=== PATIENT | male | born 1980 | race Caucasian/White ===

== ENCOUNTER 2025-01-01 08:21 | Outpatient (AMB) | payer OTHER, SELFPAY ==
--- NOTE | 2025-01-01 08:27 | A.OFFVIS_ITS ---
Vital Signs 01/01/25 08:30 Height 5 ft 6 in Weight 145 lb BMI 23.4 Intake Visit Reasons: [employer]-Chronic RT low back pain w/ RT sided sciatica Intake Note: Jay is a 43 year old male who presents today as a new patient for his chronic right lower back pain w/ right sided sciatica. Patient was referred by [facility] 09/03/24. At today's visit he states that since 2007 he has had right lower back pain that radiates into the right leg. He states that when the pain does flair up it radiates from the lower back into the right side of his pelvis down to the foot. Patient reports that he did have a MRI with in the last two years and he noted that he has had injections in the past. He reports that he does try at home exercises, CBD cream, ice/heat. Allergies No Known Allergies Allergy (Verified 01/01/25 08:31) Medication List - Last Reconciled 01/01/25 by Iram Daley MD fluticasone propionate 50 mcg/actuation 1 spray intranasal DAILY lidocaine 5% 1 patch topical DAILY PRN naproxen 500 mg PO BID PRN pantoprazole 40 mg PO DAILY HPI Comments Details: MRI lumbar 2017 at [facility]. Had more recent MRI which is not available to me today. Last injections to lumbar 5-[address] Snow, most likely epidural. History of lumbar surgery Dr. Jeff. Has tried gabapentin and lyrica in the past and didn't like the side effects. He says that he didn't know he was coming here for his back pain. 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 Forwarded referral for EMG coming from [facility] ortho to scheduling, this is for EMG upper extremities. Patient will continue to follow with Dr. Snow for his lower back pain. Patient requested EMG of lower extremities because of his chronic back and ?nerve ?issues. Ordered EMG bilateral lower extremity, but separate appointment from EMG upper extremity. Assessment and plan discussed with patient, and patient was agreeable. All questions were answered thoroughly. Iram Daley MD, GENO Board Certified, [place] Board of Physical Medicine and Rehabilitation (ABPMR) Board Certified, [place] Board of Electrodiagnostic Medicine (ABEM) Orders: Orders NE nerve conduction velocity Today R20.0 - Anesthesia of skin NE electromyogram (EMG) Today R20.0 - Anesthesia of skin Coding Level of Care Code New Pt Level 3 (59584) Diagnoses Bilateral leg numbness R20.0
[2025-01-01 08:30] VITALS: BMI 23.4
--- OUTSIDE RECORDS SUMMARY | 2025-01-01 08:45 | XMS_ITS | Clinical Summary ---
Author Organization Patient Business Ser [facility] [place] Address [address] [place] [address] Care Team Providers Care Pension Examiner Name Role Phone Jonathan Kahn MD Primary Care Provider Un available Allergies Active Allergy Reactions Criticality Noted Date Comments Pollen Extracts 06/26/2021 Stuffy nose , sneezing Seasonal Allergies Medications fluticasone propionate (FLONASE) 50 mcg/actuation nasal spray USE 1 SPRAY INTO EACH NOSTRIL EVERY DAY 48 mL 1 4 Active lisdexamfetami ne (VYVANSE) 40 mg capsule Take 1 capsule (40 mg total) by mouth 1 (one) time each day. 5 Active ALPRAZolam (XANAX) 0.5 mg tablet Take 1 tablet (0.5 mg total) by mouth 1 (one) time each day if needed. Max Daily Amount: 0.5 mg 5 Active clindamycin phosphate 1 % gel, once daily 5 Active pantoprazole (PROTONIX) 40 mg EC tablet TAKE 1 TABLET BY MOUTH EVERY DAY 90 tablet 1 5 Active meloxicam (MOBIC) 15 mg tablet TAKE 1 TABLET (15 MG TOTAL) BY MOUTH ONE TIME EACH DAY. 30 tablet 5 Active meloxicam (MOBIC) 15 mg tablet Take 1 tablet (15 mg total) by mouth 1 (one) time each day. 30 each 1 5 12/16/19 25 Discontinued Active Problems Problem Noted Date Diagnosed Date History of COVID-19 06/06/2021 Overview (11/01/2023): February 2020 Fatigue 12/08/2020 Dizziness 12/08/2020 ADD (attention deficit disorder) 05/15/2019 Insomnia 08/07/2018 Vertigo 08/10/2016 Chronic right-sided low back pain with right-bryan ed sciatica 08/02/2016 Decreased reflex 08/02/2016 Lumbar radiculopathy 08/02/2016 Lumbosacral ligament sprain 07/09/2016 Sprain of sacroiliac ligament 07/09/2016 Sprain of thoracic region 07/09/2016 Right shoulder pain 08/15/2015 Pulmonary nodule 08/10/2015 Overview (11/01/2023): Nodules on CT 07/2021; repeat 1 year (former smoker) Anxiety 07/06/2015 Kidney stones 07/06/2015 Encounters Date Type Department Care Team Description 12/24/2024 3:30 PM EDT Office Visit Pulmonology - [address] [phone] Annette Fernandez MD GARVIN (dyspnea on exertion) (Primary Dx); Lung nodules 12/08/2024 1:45 PM EDT Ancillary Procedure Pulmonology - [address] [phone] GARVIN (dyspnea on exertion) 10/16/2024 Telephone [facility] [address] [place] [address] Jonathan Kahn MD from Last 3 Months Immunizations Immunization Administration Dates Next Due Td Tetanus diptheria (Tdvax) 7yo and older 10/10 Surgical History Surgery Date Site/Laterality Comments OTHER SURGICAL HISTORY PROCEDURE: HISTORY OTHER; COMMENT: discectomy L4-5 OTHER SURGICAL HISTORY PROCEDURE: HISTORY OTHER; COMMENT: spinal fusion OTHER SURGICAL HISTORY PROCEDURE: HISTORY OTHER; COMMENT: stimulator inserted OTHER SURGICAL HISTORY PROCEDURE: HISTORY OTHER; COMMENT: stimulator removed. TONSILLECTOMY PROCEDURE: HISTORICAL TONSILLECTOMY Medical History Medical History Date Comments Pulmonary nodule 08/10/2015 DX:Pulmonary no dule; COMMENT: Seen on CT 2014 was to have 1 yr repeat / result not seen ADD (attention deficit disorder) 05/15/2019 DX:ADD (attention deficit disorder) History of COVID-19 06/06/2021 DX:History o f COVID-19; COMMENT: February 2020 GERD (gastroesophageal reflux disease) Kidney stones Family History Medical History Relation Name Comments Drug abuse Brother Ziyad Hyperlipidemia Father Hypertension Father Diabetes Maternal Grandmother Relation Name Status Comments Brother Ziyad Alive twin Father Alive Maternal Grandmother Mother Alive Social History Tobacco Use Types Packs/Day Years Used Date Smoking Tobacco: Former Cigarettes 1 1 0 02/26/2000 - 02/25/2001 Smokeless Tobacco: Never Tobacco Cessation:Counseling Given: Not Answered Alcohol Use Standard Drinks/Week Comments Yes 0 (1 standard drink = 0.6 oz pur e alcohol) Housing Instability Answer Date Recorde d Are you worried that in the next 2 months you may not have stable housing? No 03/31/2024 Food Access & Nutrition Answer Date Rec orded Do you have access to a vari ety of food including fruits and vegetables? Yes 03/31/2024 Access to Healthcare Answer Date Record ed Within the last 3 months, ho w many times did you visit the emergency department for your medical care? 0 03/31/2024 Health Literacy Answer Date Recorded How often do you need to hav e someone help you when you read instructions, pamphlets, or other written material from your doctor or pharmacy? Rarely 03/31/2024 Caregiver: How often do you need to have someone help you when you read instructions, pamphlets, or other written material from your doctor or pharmacy? Not on file 03/31/2024 Financial Risk Answer Date Recorded How hard is it for you to pa y for the very basics like food, housing, medical care, and air conditioning / heating? Somewhat hard 03/31/2024 Transportation Answer Date Recorded Has the lack of transportati on kept you from meetings, work, or from getting things needed for daily living? No Has the lack of transportati on kept you from medical appointments or from getting medications? No 03/31/2024 Social Isolation Answer Date Recorded How often do you feel lonely or isolated from th ose around you? Rarely 03/31/2024 Food Risk Answer Date Recorded Within the past 12 months we worried whether our food would run out before we got money to buy more. Never true 03/31/2024 Within the past 12 months th e food we bought just didn't last and we didn't have money to get more. Never true 03/31/2024 Dependent Care Answer Date Recorded Do you need help finding or paying for care for your loved ones. For example, child psychiatrist or elderly care for an older adult? No 03/31/2024 Education Answer Date Recorded Do you think completing more education or training, like finishing a GED, going to college, or learning a trade, would be helpful for you? No 03/31/2024 Employment and Income Answer Date Recor ded During the last four weeks, have you been actively looking for work? No 03/31/2024 Living Situation Answer Date Recorded What is your living situation? Unrecognized valu e 03/31/2024 Interpersonal Safety Answer Date Record ed Physical Abuse Unrecognized value 04/22/2024 Verbal Abuse Unrecognized value 04/22/2024 Sex and Gender Information Value Date Recorded Sex Assigned at Male 04/22/2024 12:12 PM EST Legal Sex Male 4:45 PM EST Gender Identity Male 04/22/2024 12:12 PM EST Sexual Orientation Straight 04/22/2024 12 :12 PM EST Obstetrics History Last Filed Vital Signs Vital Sign Reading Time Taken Comments Blood Pressure 123/66 12/24/2024 3:15 PM EDT Pulse 85 12/24/2024 3:15 PM EDT Temperature 36.2 C (97.1 F) 12/24/2024 3:15 PM EDT Respiratory Rate 16 12/24/2024 3:15 PM EDT Oxygen Saturation 99% 12/24/2024 3:15 PM EDT Inhaled Oxygen Concentration - - Weight 63.2 kg (139 lb 6.4 oz) 12/24/2024 3:15 P M EDT Height 167.6 cm (5' 6 ) 12/24/2024 3:15 PM EDT Body Mass Index 22.5 12/24/2024 3:15 PM EDT Plan of Treatment Health Maintenance Due Date Last Done Comments Hepatitis B Vaccines (1 of 3 - 19+ 3-dose series) 2001 HPV Vaccines (1 - 3-dose SCD M series) 2009 COVID-19 Vaccine ( - 2023-2 5 season) 2024 Influenza Vaccine (#1) 2024 Social Influencers of Health Screening 03/31/2025 03/31/2024 Cholesterol Screening (Lipid Panel) 05/07/2028 05/08/2023 DTaP,Tdap,and Td Vaccines (3 - Td or Tdap) 01/11/2033 01/11/2023, 10/10/2018 RSV Immunization Adult Patients (1 - 1-dose 75+ series) 2057 Hepatitis C Screening Completed 04/03/2022 HIV Screening Completed 05/08/2023 Depression Screening Completed 03/31/2024, 08/03/2023 HIB Vaccines Aged Out No longer eligi ble based on patient's age to complete this topic Hepatitis A Vaccines Aged Out No long er eligible based on patient's age to complete this topic IPV Vaccines Aged Out No longer eligi ble based on patient's age to complete this topic MMR Vaccines Aged Out No longer eligi ble based on patient's age to complete this topic Meningococcal ACWY Vaccine Aged Out N o longer eligible based on patient's age to complete this topic Meningococcal B Vaccine Aged Out No l onger eligible based on patient's age to complete this topic Pneumococcal Vaccine: Pediatrics (0 to 5 Years) and At-Risk Patients (6 to 49 Years) Aged Out No longer eligible b ased on patient's age to complete this topic RSV Immunization Patients Under 20 months Aged Out No longer eligible b ased on patient's age to complete this topic Varicella Vaccines Aged Out No longer eligible based on patient's age to complete this topic Procedures Procedure Name Priority Date/Time Associated Diagnosis Comments PULMONARY FUNCTION TESTING Routine 12/08/2024 1:49 PM EDT GARVIN (dyspnea on exertion) DEPRESSION SCREENING Routine 08/03/2023 HIV SCREENING Routine 05/08/2023 LIPID PANEL Routine 05/08/2023 HEPATITIS C SCREENING Routine 04/03/2022 from Last 3 Months or Most Recently Relevant to Health Maintenance Results * Pulmonary function testing: Carbon Monoxide Diffusing Capacity, Nitrogen Wash Out, Spirometry with Bronchodilator, MIP/MEP, Vital Capacity Test (12/08/2024 1:49 PM EDT) Lorenes Thony Bradford MD - 12/08/2024 1:49 PM EDT Pulmonary function test interpretation. Spirometry done today reveals FEV1 of 4.06 which is 110% of the predicted value, FVC is 4.73 which is 102% of the predicted value, FEV1 to FVC ratio is 79% of the predicted value, there is no bronchodilator response. Flow volume is consistent with normal pattern. Static lung volumes including total lung capacity is within normal limits. Diffusion lung capacity is elevated. This study is consistent with normal pulmonary mechanics, however if diagnosis of asthma is in question recommend methacholine challenge test. Clinical correlation however is advised. Result [facility] Annette Fernandez MD PFT ORDERABLES Final Result * Depression Screening (08/03/2023) [facility] Depression Screening Abstracted Result [facility] Pao [facility]NA[facility] MAINTENANCE Final Result * HIV Screening (05/08/2023) [facility] HIV Screening Abstracted Result [facility] [employer] Final Result * Lipid panel (05/08/2023) [facility] LDL/HDL Ratio 3 Triglycerides 74 mg/dL Cholesterol 218 mg/dL HDL 72 mg/dL LDL Cholesterol 132 mg/dL Blood Venous blood specimen / Unknown Result [facility] Claudia Cedeno MD LAB BLOOD ORDERABLES Katelin l Result * Hepatitis C Screening (04/03/2022) [facility] Hepatitis C Screening Abstracted Result [facility] Claudia Cedeno MD HEALTH MAINTENANCE Final Result from Last 3 Months or Most Recently Relevant to Health Maintenance Insurance [facility] [address] [place] [address] Care Teams Pension Examiner Relationship Specialty Start Date End Date Jonathan Kahn MD PCP - General Internal Medicine 04/12/20
--- OUTSIDE RECORDS SUMMARY | 2025-01-01 08:45 | XMS_ITS ---
Author Name [facility] Organization Unknown History of Medication Use Medication Directions Dispensed Refills Start Date End Date Stat amoxicillin 875 mg-potassium clavulanate 125 mg tablet TAKE 1 TABLET BY MOUTH EVERY 12 HOURS FOR 7 DAYS 4 active Anoro Ellipta 62.5 mcg-25 mcg/actuation powder for inhalation TAKE 1 PUFF BY MOUTH EVERY DAY 4 active Arnuity Ellipta 200 mcg/actuation powder for inhalation INHALE 1 PUFF INTO LUNGS DAILY 4 completed cyclobenzaprine 10 mg tablet TAKE 1 TABLET BY MOUTH EVERY DAY AT BEDTIME NEEDED FOR PAIN 4 active ondansetron HCl 4 mg tablet TAKE 1-2 TABLETS BY MOUTH EVERY 8 HOURS NEEDED FOR NAUSEA FOR UP TO 30 DAYS. 4 active oxycodone-acetaminoph en 5 mg-325 mg tablet PLEASE SEE ATTACHED FOR DETAILED DIRECTIONS 4 completed sertraline 25 mg tablet TAKE 1 TABLET BY MOUTH EVERY DAY 4 completed fluticasone propionate 50 mcg/actuation nasal spray,suspension SPRAY 1 SPRAY INTO EACH NOSTRIL EVERY DAY active pantoprazole 40 mg tablet,delayed release TAKE 1 TABLET BY MOUTH EVERY DAY active pregabalin 50 mg capsule TAKE 1 CAPSULE BY MOUTH TWICE A DAY active pregabalin 75 mg capsule TAKE 1 CAPSULE BY MOUTH TWICE A DAY active sertraline 50 mg tablet TAKE 1 TABLET BY MOUTH EVERY DAY active Wixela Inhub 250 mcg-50 mcg/dose powder for inhalation TAKE 1 PUFF BY MOUTH TWICE A DAY active Problems Problem Status Onset Date Problem Type Date of Resoluti on Source Pain of right shoulder region active 2023-10-08 ProblemAct ENS_AONECT Encounters Encounter Type Encounter Reason Primary Diagnosis Location Date Ambulatory [facility] 10/09/2023 Ambulatory [facility] 10/08/2023 Ambulatory [facility] 09/03/2023 Ambulatory [facility] 09/02/2023 Ambulatory [facility] 09/02/2023 Ambulatory [facility] 09/02/2023 Ambulatory [facility] 09/02/2023 Ambulatory [facility] 08/09/2023 Care Team Organization Name Specialty Phone Email Start Date End Da te [facility] Jonathan Kahn Primary Care 01/02/2022 10/14/2023
== END 2025-01-01 09:06 | disposition home or self-care (01) ==
LOC: HO.HOS 08:22
PROVIDERS: Visit Provider Physical Medicine & Rehabilitation
DX: R20.0 Anesthesia of skin (principal)
CPT/HCPCS: 99203

== ENCOUNTER 2025-02-05 11:34 | Outpatient (REF) | payer OTHER, SELFPAY ==
--- OUTSIDE RECORDS SUMMARY | 2025-02-05 16:50 | XMS_ITS | Clinical Summary ---
Author Organization Patient Business Ser [facility] Address [address] [place] [address] Care Team Providers Care Crumb Packer Name Role Phone Jonathan Kahn MD Primary Care Provider [phone] Allergies Active Allergy Reactions Criticality Noted Date Comments Pollen Extracts 06/26/2021 Stuffy nose , sneezing Seasonal Allergies Medications fluticasone propionate (FLONASE) 50 mcg/actuation nasal spray USE 1 SPRAY INTO EACH NOSTRIL EVERY DAY 48 mL 1 02/20/2024 Active lisdexamfetamin e (VYVANSE) 40 mg capsule Take 1 capsule (40 mg total) by mouth 1 (one) time each day. 03/02/2024 Active ALPRAZolam (XANAX) 0.5 mg tablet Take 1 tablet (0.5 mg total) by mouth 1 (one) time each day if needed. Max Daily Amount: 0.5 mg 07/22/2024 Active clindamycin phosphate 1 % gel, once daily 04/07/2024 Act nicole pantoprazole (PROTONIX) 40 mg EC tablet TAKE 1 TABLET BY MOUTH EVERY DAY 90 tablet 1 09/09/2024 Active meloxicam (MOBIC) 15 mg tablet TAKE 1 TABLET (15 MG TOTAL) BY MOUTH ONE TIME EACH DAY. 30 tablet 12/15/2024 Active Active Problems Problem Noted Date Diagnosed Date [...] 12/24/2024 3:30 PM EDT Office Visit Pulmonology [address] [phone] Annette Fernandez MD GARVIN (dyspnea on exertion) (Primary Dx); Lung nodules 12/08/2024 1:45 PM EDT Ancillary Procedure Pulmonology [address] [phone] GARVIN (dyspnea on exertion) from Last 3 Months Immunizations Immunization Administration [...] for your loved ones. For example, child support case officer or elderly care for an older adult? [...] Orientation Straight 04/22/2024 12 :12 PM EST Last Filed Vital Signs Vital Sign Reading [...] 3-dose SCD M series) 2009 COVID-19 Vaccine (2024-2 6 season) 2024 Influenza Vaccine (#1) 2024 Social [...] Vital Capacity Test (12/08/2024 1:49 PM EDT) Impressions Thony Bradford, MD - 12/08/2024 1:49 PM EDT Pulmonary [...] test. Clinical correlation however is advised. Result [facility] Annette Fernandez MD PFT ORDERABLES Final Result * Depression Screening (08/03/2023) [facility] Depression Screening Abstracted Result [facility] Final Result * HIV Screening (05/08/2023) [facility] HIV Screening Abstracted Result [facility] Final Result * Lipid panel (05/08/2023) [facility] LDL/HDL Ratio 3 Triglycerides 74 mg/dL Cholesterol 218 mg/dL HDL 72 mg/dL LDL Cholesterol 132 mg/dL Blood Venous blood specimen / Unknown Result [facility] Claudia Cedeno MD LAB BLOOD ORDERABLES Katelin l Result * Hepatitis C Screening (04/03/2022) [facility] Hepatitis C Screening Abstracted Result [facility] Final Result from Last 3 Months or Most Recently Relevant to Health Maintenance Insurance [facility] Care Teams Crumb Packer Relationship Specialty Start Date End Date Jonathan Kahn MD PCP - General Internal Medicine 04/12/20
== END 2025-02-05 11:35 | disposition home or self-care (01) ==
LOC: HO.HPHYSR 11:34
PROVIDERS: Visit Provider Physical Medicine & Rehabilitation
DX: M54.16 Radiculopathy, lumbar region (principal)
CPT/HCPCS: 62323; J2003; J3301; Q9967

== ENCOUNTER 2025-02-05 11:34 | Outpatient (AMB) | payer OTHER, SELFPAY ==
[2025-02-05 11:40] VITALS: BP 120/92; PULSE 84; TEMP 36.8; BMI 23.4
--- NOTE | 2025-02-05 11:40 | A.PHYSOV ---
Vital Signs 02/05/25 11:40 Height 5 ft 6 in Weight 145 lb BMI 23.4 BP 120/92 H Pulse 84 Temp 98.2 F Intake Visit Reasons: Lumbar Interlaminar Epidural Injection L5-S1 Intake Note: Patient is a 44 year old male in office today for a L5-S1 interlaminar epidural injection. 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 Skin over the lumbar sacral area was prepped and draped in usual sterile manner. L5-S1 interlaminar space was visualized utilizing fluoroscopy. After skin was anesthetized with 1% lidocaine solution, 3.5 in 20 gauge Toughy needle was introduced percutaneously and advanced toward the epidural space at the indicated level. Loss of resistance technique was utilized. Needle placement was verified utilizing 3 cc of Omnipaque contrast solution. Excellent epidural spread was visualized without evidence of vascular uptake. Total volume of 8 cc containing 2 cc of 1% lidocaine, 40 mg of triamcinolone and normal saline solution were injected after negative aspiration for blood and cerebrospinal fluid. Radiation exposure was documented in the chart. Lumbar Interlaminar Epidural 70571- use with FL Gd order: Lumbar Interlaminar Epidural Steroid Injection 14665 Procedure code (CPT) selection complete Office Meds Kenalog 40 mg/mL suspension for injection Performing Provider: Edward Snow DO Per[facility] Administered by: Edward Snow DO on 02/05/25 11:43 Dose Route Admin Location Dispensed Lot Number Expiration Date [facility] Adolescent Counselor 40 mg epidural 1 mL [id number] [employer] Total Dispensed Waste 1 mL 0 % lidocaine (PF) 10 mg/mL (1 %) injection solution Performing Provider: Edward Snow DO Performing Location: [facility] Administered by: Edward Snow DO on 02/05/25 11:43 Dose Route Admin Location Dispensed Lot Number Expiration Date [facility] Adolescent Counselor 50 mg epidural 5 mL [id number] [facility] Total Dispensed Waste 5 mL 0 % Omnipaque 300 300 mg iodine/mL intravenous solution Performing Provider: Edward Snow DO [facility] Administered by: Edward Snow DO on 02/05/25 11:43 Dose Route Admin Location Dispensed Lot Number Expiration Date [facility] Adolescent Counselor 3 mL epidural 10 mL [id number] [employer] Total Dispensed Waste 10 mL 70 % Assessment & Plan Assessment & Plan (1) Lumbar radiculitis: Code(s): M54.16 - Radiculopathy, lumbar region Category: Medical Plan: Procedure Plan Procedure Orders: Orders FL Gd L Spine Interlaminar Inj Today M54.16 - Radiculopathy, lumbar region AMB Lumbar Interlaminar Epidural Steroid Injection Today M54.16 - Radiculopathy, lumbar region Scribe Plan - Not visible on output: Procedure Coding Level of Care Code Procedure Only Diagnoses Lumbar radiculitis M54.16 CPT Codes Lumbar Interlaminar Epidural Steroid I - 47318 - Lumbar Interlaminar Epidural: Lumbar Interlaminar Epidural Steroid Injection 46598 ([id number])
== END 2025-02-05 12:16 | disposition home or self-care (01) ==
LOC: HO.HPHYS 11:35
PROVIDERS: Visit Provider Physical Medicine & Rehabilitation
DX: M54.16 Radiculopathy, lumbar region (principal)
CPT/HCPCS: 62323